=== PATIENT | female | born 1955 | race Caucasian/White ===

== ENCOUNTER 2017-05-17 22:03 | Emergency (ER) | END 2017-05-18 01:25 | disposition left against medical advice (07) | LOC: ER 22:03 | DX: Z53.21 Procedure and treatment not carried out due to patient leaving prior to being seen by health care provider (principal) ==

== ENCOUNTER → 2017-09-08 | Day surgery (SDC) | payer MEDICAID ==
[~2017-09-08] MED LIST: LIDOCAINE 2% INJ (20 MG/ML) 20 ML MDV ONE
--- NOTE | 2017-09-13 16:48 | WOMENS IMAGING REPORT ---
EXAM DESCRIPTION: U/S BREAST BX; LEFT DIG DX MAMMO NO CHG COMPLETED DATE/TIME: 09/08/2017 12:27 pm; 09/08/2017 11:49 am REASON FOR STUDY: LEFT BREAST LUMP; LEFT S/P US BX FOR CLIP PLACEMENT N63.20 UNSPECIFIED LUMP IN TH E LEFT BREAST, UNSPECIFIED QUAD COMPARISON: Outside mammograms 07/19/2017 TECHNIQUE: The procedure was discussed with the patient and the patient agreed to proceed. The patient was scanned and the area of interest in the 3 o'clock position periareolar left breast wa s localized. This correlates with the area of concern on prior imaging studies. This area was target ed for ultrasound-guided core biopsy. After sterile skin prep and 2.5 mL local lidocaine 1% for skin and deep tissue anesthesia, a 14 gauge coaxial core biopsy needle was used to obtain 1 core of tissue from the lesion. This lesion was a b reast cyst, and disappeared after needle placement. Under ultrasound guidance, a ribbon clip was zev macie in the areas sampled. There were no immediate post-procedure complications. MAMMOGRAM: Post-procedure two view mammogram was acquired in the digital mammogram suite. The clip wa s in the expected location. No significant hematoma. Pathology yields a diagnosis of benign cyst Pathology is concordant. No other focal nodule was identified today at ultrasound. LIMITATIONS: None. FINDINGS: Ultrasound guided breast biopsy as described above. POST PROCEDURE MAMMOGRAMS FOR MARKER PLACEMENT: Yes IMPRESSION: ULTRASOUND-GUIDED CORE BIOPSY OF THE LEFT BREAST YIELDS A DIAGNOSIS OF BENIGN BREAST PAR ENCHYMAL CYST BI-RADS 2 Benign findings. COMMENT: COMMUNICATION: THIS REPORT WAS DISCUSSED WITH THE PATIENT, 09/13/2017. SHE UNDERSTANDS THAT THIS IS A BENIGN DIAGNOSIS AND THAT SHE CAN RETURN TO SCREENING IN JULY 2018 Patient medication list reviewed: Yes- Quality ID# [id number]:Eligible professional attests to documenting i n the medical record they obtained, updated, or reviewed the patient's current medications. TECHNICAL DOCUMENTATION: JOB ID: [id number] [employer]- All Rights Reserved Reading location - IP/workstation name: [email or web address]
== END ==
LOC: WI 10:19
DX: N60.12 Diffuse cystic mastopathy of left breast (principal); N63.20 Unspecified lump in the left breast, unspecified quadrant
CPT/HCPCS: 88305 ×2; 19083; J3490

== ENCOUNTER → 2018-06-16 | Outpatient (CLI) | payer MEDICAID ==
[~2018-06-16] MED LIST changes: +DIPHENHYDRAMINE HCL 50 MG/ML VIAL ONE; +EPINEPHRINE INJ/PF 1 MG/1 ML AMPULE ONE; -LIDOCAINE 2% INJ (20 MG/ML) 20 ML MDV ONE
--- NOTE | 2018-06-16 09:14 | RADIOLOGY REPORT (SQ) ---
EXAM DESCRIPTION: CT LEFT LOWER EXTREMITY WITH COMPLETED DATE/TIME: 06/16/2018 8:47 am REASON FOR STUDY: LOCALIZED SWELLING MASS AND LUMP, LEFT LOWER LIMB (R22.42) R22.42 LOCALIZED SWELL ING, MASS AND LUMP, LEFT LOWER LIMB COMPARISON: None. TECHNIQUE: Postcontrast axial imaging performed through the left hip and upper thigh with reformatte d coronal and sagittal imaging windowed for bone and soft tissues. Images saved to PACS. 3D IMAGING: Were 3D images as MIP, SSD, or volume rendering performed at the work station? No. All CT scanners at this facility use dose modulation, iterative reconstruction, and/or weight based d osing when appropriate to reduce radiation dose to as low as reasonably achievable (ALARA). [facility]: Dose Right [facility]: CareDose [facility]: Dose Right [facility]: Teradose 4D [facility]: [place] acquired by [employer] CONTRAST TYPE AND DOSE: contrast/concentration: Isovue 350.00 mg/ml; Total Contrast Delivered: 50.0 ml; Total Saline Delivered: 50.0 ml RENAL FUNCTION: Creatinine 1.0. LIMITATIONS: None. RADIATION DOSE: CT Rad equipment meets quality standard of care and radiation dose reduction techniq ues were employed. CTDIvol: 3.8 mGy. DLP: 160 mGy-cm.mGy. FINDINGS: SOFT TISSUES: No obvious swelling or foreign body. No focal lipoma or soft tissue mass. BONES: No acute fracture. No dislocation. MINERALIZATION: Normal. ENHANCEMENT: No abnormal enhancement. OTHER: No other significant finding. IMPRESSION: NO SIGNIFICANT FINDING IN THE LEFT HIP AND UPPER THIGH. NO FOCAL LIPOMA OR SOFT TISSUE MASS. NO BONY ABNORMALITY. TECHNICAL DOCUMENTATION: JOB ID: [id number] Quality ID # [id number]: Final reports with documentation of one or more dose reduction techniques (e.g., Au tomated exposure control, adjustment of the mA and/or kV according to patient size, use of iterative reconstruction technique) 2010 [employer]- All Rights Reserved Reading location - IP/workstation name: [email or web address]
== END ==
LOC: RAD 07:40
PROVIDERS: ATTEND Family Medicine
DX: R22.42 Localized swelling, mass and lump, left lower limb (principal)
CPT/HCPCS: 82565; J0171; J1200